=== PATIENT | female | born 1940 | race African-American/Black ===

== ENCOUNTER 2017-09-26 06:53 | Day surgery (SDC) | payer OTHER ==
[~2017-09-26] VITALS: Ht 152.4 cm; Wt 113.4 kg
[~2017-09-26 06:53] MED LIST: ALLO300T2 PO; AMLO10TA80 PO; ASPI-1159 PO; CARV25TA47 PO; FURO40TA5 PO; GLIP5TAB12 PO; HYDR-4001 PO; HYDR100T26 PO; ISOS30TA6 PO; LEVVL SQ; LISI40TA4 PO; METF500T4 PO; POTA20TA82 PO
[2017-09-26 08:02] LABS: EOSINOPHILS % 2.3 % (0.0-5.0); HEMATOCRIT. 35.1 % (36.0-48.0); HEMOGLOBIN. 11.7 g/dL (12.0-16.0); LYMPHOCYTES % 22.4 % (20.0-50.0); MEAN CORPUSCULAR HEMOGLOBIN 28.6 pg (28.0-32.0); MEAN PLATELET VOLUME 7.9 fl (7.4-10.4); MONOCYTES % 6.8 % (2.0-8.0); NEUTROPHILS % 67.5 % (40.0-76.0); PLATELET 188 x1000/uL (130-400); RED BLOOD CELL COUNT 4.08 mill/uL (4.2-5.4); RED CELL DISTRIBUTION WIDTH 16.2 % (11.6-14.6)
[2017-09-26 08:08] LABS: CHLORIDE 104 mEq/L (98-107)
[2017-09-26] MEDS ORDERED: FENTANYL CITRATE/PF 50MCG/ML 2ML VIAL ONE (08:32)
[2017-09-26] MEDS ORDERED: MIDAZOLAM HCL 2 MG/2 ML VIAL ONE (08:33)
[2017-09-26] MEDS ORDERED: PROPOFOL 200MG/20ML VIAL IV ONE (08:33)
[2017-09-26] MEDS ORDERED: CEFAZOLIN SODIUM 1000MG/VIAL ONE (08:35)
[2017-09-26] MEDS ORDERED: ONDANSETRON HCL 4MG/2ML VIAL ONE (09:51)
[2017-09-26] MEDS ORDERED: KETOROLAC 30MG/ML VIAL ONE (09:51)
== END 2017-09-26 11:15 | disposition home or self-care (01) ==
LOC: OR 06:53
PROVIDERS: ATTEND Obstetrics & Gynecology Obstetrics
DX: N95.0 Postmenopausal bleeding (principal); Z96.659 Presence of unspecified artificial knee joint; E11.36 Type 2 diabetes mellitus with diabetic cataract; D64.89 Other specified anemias; I25.810 Atherosclerosis of coronary artery bypass graft(s) without angina pectoris; I13.0 Hypertensive heart and chronic kidney disease with heart failure and stage 1 through stage 4 chronic kidney disease, or unspecified chronic kidney disease; E11.22 Type 2 diabetes mellitus with diabetic chronic kidney disease; N18.3 Chronic kidney disease, stage 3 (moderate); I50.9 Heart failure, unspecified; I50.40 Unspecified combined systolic (congestive) and diastolic (congestive) heart failure; I25.2 Old myocardial infarction; M10.9 Gout, unspecified; E78.00 Pure hypercholesterolemia, unspecified; Z79.899 Other long term (current) drug therapy; Z79.82 Long term (current) use of aspirin; Z79.4 Long term (current) use of insulin; Z95.1 Presence of aortocoronary bypass graft; Z87.891 Personal history of nicotine dependence; E66.01 Morbid (severe) obesity due to excess calories; Z98.890 Other specified postprocedural states
CPT/HCPCS: 36415; 58558; 80048; 82962; 85025; 88305; 93005; J0690; J1885; J2250; J2405; J3010; J7030; J2704

== ENCOUNTER 2019-03-29 12:14 | Emergency (ER) | payer OTHER ==
[~2019-03-29] VITALS: Ht 170.2 cm; Wt 113.5 kg
[~2019-03-29 12:14] MED LIST changes: -ASPI-1159 PO; +ASPI-1393 PO; +METF-414 PO; -METF500T4 PO
[2019-03-29 12:40] VITALS: BP 169/56
[2019-03-29] MEDS ORDERED: IBUPROFEN 600MG TABLET PO ONE (12:45)
[2019-03-29] MEDS ORDERED: OXYCODONE HCL/ACETAMINOPHEN 5/325MG TABLET PO ONE (12:45)
== END 2019-03-29 14:47 | disposition home or self-care (01) ==
LOC: ER 12:14
DX: M79.18 Myalgia, other site (principal); I11.0 Hypertensive heart disease with heart failure; I50.9 Heart failure, unspecified; E11.9 Type 2 diabetes mellitus without complications; I25.10 Atherosclerotic heart disease of native coronary artery without angina pectoris; Z95.1 Presence of aortocoronary bypass graft; Z96.659 Presence of unspecified artificial knee joint; V43.52XA Car driver injured in collision with other type car in traffic accident, initial encounter; Y93.89 Activity, other specified; Y92.488 Other paved roadways as the place of occurrence of the external cause
CPT/HCPCS: 72040; 73560; 99283

== ENCOUNTER 2024-10-01 16:38 | Emergency (ER) | payer MEDICARE, OTHER ==
[~2024-10-01] VITALS: Ht 170.2 cm; Wt 91.0 kg
[~2024-10-01 16:38] MED LIST changes: -ASPI-1393 PO; +ASPI-1497 PO; -GLIP5TAB12 PO; +GLIP5TAB22 PO; +HYDR100T11 PO; -HYDR100T26 PO; -ISOS30TA6 PO; +ISOS30TA91 PO; +LISI40TA13 PO; -LISI40TA4 PO; +POTA-205 PO; -POTA20TA82 PO
[2024-10-01 16:42] VITALS: O2SAT 98
[2024-10-01 16:52] VITALS: TEMP 36.8; O2SAT 100
[2024-10-01] MEDS ORDERED: ISOSORBIDE MONONITRATE 20MG TABLET PO NR (18:00)
[2024-10-01 18:04] VITALS: RESP 20
[2024-10-01] MEDS: IBUPROFEN 400MG TABLET PO ONE (18:04)
[2024-10-01] MEDS: ISOSORBIDE MONONITRATE 20MG TABLET PO STA (18:08)
[2024-10-01 18:09] VITALS: BP 193/70; PULSE 67
== END 2024-10-01 19:28 | disposition home or self-care (01) ==
LOC: ER 16:38
DX: M54.6 Pain in thoracic spine (principal); R07.81 Pleurodynia; R07.89 Other chest pain; I10 Essential (primary) hypertension; E11.9 Type 2 diabetes mellitus without complications; I11.0 Hypertensive heart disease with heart failure; I25.10 Atherosclerotic heart disease of native coronary artery without angina pectoris; I50.9 Heart failure, unspecified; Z79.82 Long term (current) use of aspirin; Z79.84 Long term (current) use of oral hypoglycemic drugs; Z79.899 Other long term (current) drug therapy; Z95.1 Presence of aortocoronary bypass graft; Z96.659 Presence of unspecified artificial knee joint; Z98.890 Other specified postprocedural states; V89.2XXA Person injured in unspecified motor-vehicle accident, traffic, initial encounter; Y93.89 Activity, other specified; Y92.410 Unspecified street and highway as the place of occurrence of the external cause
CPT/HCPCS: 71250; 72128; 72131; 99284